=== PATIENT | male | born 1950 | race Caucasian/White ===

== ENCOUNTER 2020-01-13 14:21 | Emergency (ER) | payer OTHER, MEDICARE ==
[2020-01-13 14:37] VITALS: BMI 33.0
[2020-01-13] MEDS ORDERED: LACTATED RINGERS SOLUTION 1000 ML INFUS.BAG IV ONE (15:30)
[2020-01-13 15:36] LABS: BASO % 0.5 % (0-2.0); EOS % 0.1 % (0-4.5); HEMATOCRIT 29.8 % (35.4-49); HEMOGLOBIN 10.3 GM/dL (11.7-16.9); LYMPH % 14.1 % (8-40); MCH 33.7 pg (25.7-33.7); MCHC 34.6 g/dl (32.0-35.9); MEAN CELL VOLUME 97.5 fl (80-96); MEAN PLT VOLUME 7.6 fl (7.5-11.1); MONO % 10.5 % (3.8-10.2); NEUT % 74.8 % (42.8-82.8); RBC 3.05 M/mm3 (4.00-5.60); RDW 17.8 % (11.9-15.9); WHITE BLOOD COUNT 2.5 K/mm3 (4.0-10.0)
[2020-01-13 15:42] LABS: INR 2.29 (0.83-1.09); PROTHROMBIN TIME (PATIENT) 27.3 SEC (9.7-13.0)
[2020-01-13 15:43] LABS: PLATELET COUNT 25 K/MM3 (134-434)
[2020-01-13 15:45] LABS: ACTIVATED PTT 40.8 SECONDS (25.2-36.5)
[2020-01-13 16:28] LABS: ALBUMIN 2.3 g/dl (3.4-5.0); ALK PHOS 73 U/L (45-117); ANION GAP 8 MMOL/L (8-16); BLOOD UREA NITROGEN 7.6 mg/dL (7-18); CALCIUM 7.8 mg/dL (8.5-10.1); CHLORIDE 94 mmol/L (98-107); CO2 31 mmol/L (21-32); CREATININE 0.9 mg/dL (0.55-1.3); GLUCOSE,RANDOM 82 mg/dL (74-106); MAGNESIUM 1.6 mg/dL (1.8-2.4); POTASSIUM 3.3 mmol/L (3.5-5.1); SGOT/AST 39 U/L (15-37); SGPT/ALT 11 U/L (13-61); SODIUM 133 mmol/L (136-145); TOT PROT 5.1 g/dl (6.4-8.2)
[2020-01-13 16:31] LABS: BILIRUBIN,TOTAL 4.8 mg/dL (0.2-1)
--- NOTE | 2020-01-13 16:35 | PDOC ---
Documentation entered by Micah Petty SCRIBE, acting as scribe for Anali Weller MD. Anali Weller MD: This documentation has been prepared by the Ramon stout inMicah SCRIBE, under my direction and personally reviewed by me in its entirety. I confirm that the documentation accurately reflects all work, treatment, procedures, and medical decision making performed by me. Attending Attestation - Resident Resident Name: AdirafiaValeriano - ED Attending Attestation I have performed the following: I have examined & evaluated the patient, The case was reviewed & discussed with the resident, I agree w/resident's findings & plan, Exceptions are as noted - HPI HPI: 01/13/20 16:07 The patient is a 69 year old male with a significant past medical history of end stage liver disease (on transplant list) who presents to the emergency department for evaluation of generalized weakness and shortness of breath that began one week ago. He reports leg swelling for the past week and worsening ascites. The patient denies chest/abdominal/back pain, cough, fever, chills, nausea, vomiting, and/or any GI symptoms. Denies any symptoms. Denies any other symptoms. Allergies: NKA - Physicial Exam PE: 01/13/20 16:27 Agree with resident exam. patient is alert and oriented and in no acute distress. pulm: + tachypnea, + decreased air entry on R. CV: rrr no murmurs. Abdomen: + ascites, no tenderness. ext: + 2 pitting edema to knee b/l. neuro: alert and oriented x 3. CN grossly intact. 01/13/20 16:31 - Critical Care Time Total Critical Care Time: 30 Critical Care Statement: The care of this patient involved high complexity decision making to prevent further life threatening deterioration of the patient's condition and/or to evaluate & treat vital organ system(s) failure or risk of failure. - Medical Decision Making 01/13/20 16:32 Pt presents to the ED complaining of shortness of breath. HIstory of end stage liver disease, on the transplant list. Borderline BP and hypoxia on arrival to the ED, improved with nasal cannula. Labs show severe thrombocytopenia, coagulopathy. CXR shows large new effusion. patient's care is with transplant service at [facility]. Will consider transfer to [facility] when labs are back. 01/13/20 16:34 Discharge - Discharge Information Problems reviewed: Yes Clinical Impression/Diagnosis: Thrombocytopenia, Shortness of breath, Pleural effusion Cirrhosis Qualifiers: Hepatic cirrhosis type: alcoholic cirrhosis Ascites presence: with ascites Qualified Code(s): K70.31 - Alcoholic cirrhosis of liver with ascites Disposition: TRANSFER ACUTE CARE/OTHER HOSP - Follow up/Referral - Patient Discharge Instructions - Post Discharge Activity
[2020-01-13 17:03] LABS: N-TERMINAL BNP 1491.3 pg/ml (5-125)
--- NOTE | 2020-01-13 19:01 | PDOC ---
History of Present Illness - General Chief Complaint: Weakness Stated Complaint: RESPIRATORY Time Seen by Provider: 01/13/20 15:28 - History of Present Illness Initial Comments: 69yo M with history of end stage liver disease (on transplant list), esophageal varices s/p banding, who presents to the emergency department for one week of generalized weakness and shortness of breath. Reports leg swelling for the past week and worsening ascites. PMH/PSH: as above Home Medications Medication Instructions Recorded Furosemide [Lasix -] 40 mg PO DAILY #0 tablet 03/01/14 Spironolactone [Aldactone -] 50 mg PO BID #0 tablet 03/01/14 Carvedilol 6.25 mg PO BID 08/09/19 Allergies Allergy/AdvReac Type Severity Reaction Status Date / Time No Known Allergies Allergy Verified 08/09/19 15:09 ROS GENERAL/CONSTITUTIONAL: No fever or chills. weakness. HEAD, EYES, EARS, NOSE AND THROAT: No change in vision. No ear pain or discharge. No sore throat. CARDIOVASCULAR: No chest pain. shortness of breath RESPIRATORY: No cough, wheezing, or hemoptysis. GASTROINTESTINAL: No nausea, vomiting, diarrhea or constipation. GENITOURINARY: No dysuria, frequency, or change in urination. MUSCULOSKELETAL: No joint or muscle swelling or pain. No neck or back pain. SKIN: No rash NEUROLOGIC: No headache, vertigo, loss of consciousness, or change in strength/sensation. ENDOCRINE: No increased thirst. No abnormal weight change ALLERGIC/IMMUNOLOGIC: No hives or skin allergy. PE GENERAL: Awake, alert, and fully oriented, in no acute distress HEAD: No signs of trauma, normocephalic, atraumatic EYES: PERRLA, EOMI, scleral icterus ENT: Auricles normal inspection, hearing grossly normal, nares patent, oropharynx clear without exudates. Moist mucosa NECK: Normal ROM, supple, no lymphadenopathy, JVD, or masses LUNGS: tachypneaic, decreased breath sounds on right HEART: Regular rate and rhythm, normal S1 and S2, no murmurs, rubs or gallops, peripheral pulses normal and equal bilaterally. ABDOMEN: Soft, distended with ascites, non-tender EXTREMITIES : 2+ LE pitting edema to the knee bilaterally NEUROLOGICAL: Normal speech, no focal sensorimotor deficits SKIN: Warm, Dry, normal turgor, no rashes or lesions noted Vital Signs Temp Pulse Resp BP Pulse Ox 98.3 F 90 23 H 100/60 96 01/13/20 14:21 01/13/20 14:21 01/13/20 18:00 01/13/20 14:21 01/13/20 18:00 MDM: 69yo M with history of end stage liver disease (on transplant list), esophageal varices s/p banding, who presents to the emergency department for one week of generalized weakness and shortness of breath. Was hypoxic on arrival and saturating well on NC. DDx includes worsening liver failure, CHF, hepato-renal syndrome, infection -EKG -CXR -CBC, CMP, coags, cardiac enzymes, blood and urine cultures EKG: accelerated junctional rhythm, rate 82, normal axis, low voltage, no ischemic ST-T changes CXR: large effusion on right Labs: notable for WBC 2.5, Hgb 10.3, Plt 25, INR 2.29, NA 133, K 3.3, BUN/CR 7.6/0.9, lactate 2.7, AST/ALT 39/11, bili 4.8, BNP 1491, trop neg x1 Given patient's complicated medical history, thrombocytopenia, anemia, coagulopathy, volume overload, will trasnfer to [facility] liver transplant service for further management. Accepting physician Dr. Peguero, attending dairy processing equipment operator on the [facility] liver transplant service Will defer rectal exam and paracentesis secondary to thrombocytopenia and coagulopathy Rapid Covid negative, so [facility] will arrange transfer directly to the liver unit 01/13/20 20:00 Patient accepted for transfer, awaiting transport. Signed out to night team. 01/13/20 20:02 Past History - Medical History Allergies/Adverse Reactions: Allergies Allergy/AdvReac Type Severity Reaction Status Date / Time No Known Allergies Allergy Verified 08/09/19 15:09 Home Medications: Ambulatory Orders Furosemide [Lasix -] 40 mg PO DAILY #0 tablet 03/01/14 Spironolactone [Aldactone -] 50 mg PO BID #0 tablet 03/01/14 Carvedilol 6.25 mg PO BID 08/09/19 COPD: No GI Disorders: Yes (loss of appetite.nausea) Liver Disease: Yes - Psycho-Social/Smoking History Smoking Status: No Smoking History: Former smoker Have you smoked in the past 12 months: No Number of Cigarettes Smoked Daily: 0 If you are a former smoker, when did you quit?: 50 ys Information on smoking cessation initiated: No - Substance Abuse Hx (Audit-C & DAST Scrn) How often the patient has a drink containing alcohol: Never Score: In Men: 4 or > Positive; In Women: 3 or > Positive: 0 Screen Result (Pos requires Nsg. Audit-10AR): Negative In the last yr the pt used illegal drug/Rx for NonMed reason: No Score: Yes response is considered Positive: 0 Screen Result (Positive result requires Nsg. DAST-10): Negative *Physical Exam - Vital Signs Last Vital Signs Temp Pulse Resp BP Pulse Ox 98.3 F 90 23 H 100/60 96 01/13/20 14:21 01/13/20 14:21 01/13/20 18:00 01/13/20 14:21 01/13/20 18:00 ED Treatment Course - LABORATORY CBC & Chemistry Diagram: 01/13/20 15:30 01/13/20 15:30 - ADDITIONAL ORDERS Additional order review: Laboratory Results 01/13/20 01/13/20 01/13/20 15:50 15:50 15:50 PT with INR INR PTT (Actin FS) Sodium Potassium Chloride Carbon Dioxide Anion Gap BUN Creatinine Est GFR (CKD-EPI)AfAm Est GFR (CKD-EPI)NonAf Random Glucose Lactic Acid 2.7 H* Calcium Magnesium Total Bilirubin AST ALT Alkaline Phosphatase Ammonia 27.70 Creatine Kinase Troponin I B-Natriuretic Peptide Total Protein Albumin Blood Type O NEGATIVE Antibody Screen Negative 01/13/20 01/13/20 15:30 15:30 PT with INR 27.30 H INR 2.29 H PTT (Actin FS) 40.8 H Sodium 133 L Potassium 3.3 L Chloride 94 L Carbon Dioxide 31 Anion Gap 8 BUN 7.6 Creatinine 0.9 Est GFR (CKD-EPI)AfAm 102.07 Est GFR (CKD-EPI)NonAf 88.07 Random Glucose 82 Lactic Acid Calcium 7.8 L Magnesium 1.6 L Total Bilirubin 4.8 H AST 39 H ALT 11 L Alkaline Phosphatase 73 Ammonia Creatine Kinase 39 Troponin I < 0.02 B-Natriuretic Peptide 1491.3 H Total Protein 5.1 L Albumin 2.3 L Blood Type Antibody Screen 01/13/20 15:30 RBC 3.05 L MCV 97.5 H MCHC 34.6 RDW 17.8 H MPV 7.6 Neutrophils % 74.8 Lymphocytes % 14.1 D Monocytes % 10.5 H Eosinophils % 0.1 Basophils % 0.5 - Medications Given in the ED: ED Medications Discontinued Medications Generic Name Dose Route Start Last Admin Trade Name Freq PRN Reason Stop Dose Admin Lactated Ringer's 1,000 ml 01/13/20 15:30 01/13/20 16:06 Lactated Ringers Solution IV 01/13/20 15:31 Not Given NOW ONE Discharge - Discharge Information Problems reviewed: Yes Clinical Impression/Diagnosis: Thrombocytopenia, Shortness of breath, Pleural effusion Cirrhosis Qualifiers: Hepatic cirrhosis type: alcoholic cirrhosis Ascites presence: with ascites Qualified Code(s): K70.31 - Alcoholic cirrhosis of liver with ascites Disposition: TRANSFER ACUTE CARE/OTHER HOSP - Follow up/Referral - Patient Discharge Instructions - Post Discharge Activity - Transfer to Acute Care Facility Receiving Facility Name: [facility]
[2020-01-13 20:19] VITALS: BP 108/66; PULSE 77; TEMP 98.1
--- NOTE | 2020-01-14 11:38 | EKG ---
Test Reason : Blood Pressure : / mmHG Vent. Rate : 083 BPM Atrial Rate : 083 BPM P-R Int : 000 ms QRS Dur : 084 ms QT Int : 348 ms P-R-T Axes : 000 -14 045 degrees QTc Int : 408 ms POOR DATA QUALITY, INTERPRETATION MAY BE ADVERSELY AFFECTED PROBABLY NORMAL SINUS RHYTHM LOW VOLTAGE QRS POSSIBLE ANTEROLATERAL INFARCT , AGE UNDETERMINED NONSPECIFIC ST ABNORMALITY ABNORMAL ECG Confirmed by PRISCA ROGERS MD ([id number]) on 01/14/2020 11:38:18 AM Referred By: Confirmed By:PRISCA ROGERS MD
== END 2020-01-13 22:04 | disposition short-term general hospital (02) ==
LOC: JER 14:21
DX: D69.6 Thrombocytopenia, unspecified (principal); R06.02 Shortness of breath; K70.31 Alcoholic cirrhosis of liver with ascites
CPT/HCPCS: 36415; 71045-TC-FY; 80053; 82140; 82550; 83605; 83735; 83880; 84484; 85025; 85610; 85730; 86850; 86900; 86901; 87040; 93005; 93010; 99291; U0003

== ENCOUNTER 2020-04-24 15:29 | Emergency (ER) | payer OTHER, MEDICARE ==
[2020-04-24 15:37] VITALS: TEMP 97.5; BMI 26.5
[2020-04-24 19:37] VITALS: BP 119/67; PULSE 81
== END 2020-04-24 21:52 | disposition short-term general hospital (02) ==
LOC: JER 15:29
DX: R06.02 Shortness of breath (principal); J90 Pleural effusion, not elsewhere classified
CPT/HCPCS: 71045-TC-FY; 93005; 93010; 99285-25